=== PATIENT | male | born 1970 | race Caucasian/White ===

== ENCOUNTER → 2020-02-28 | Outpatient (CLI) | payer OTHER | END | disposition home or self-care (01) | LOC: EDSTATUS 15:00 → CVU 15:21 | PROVIDERS: ATTEND Internal Medicine Cardiovascular Disease | DX: R07.89 Other chest pain (principal) | CPT/HCPCS: 93306; 93356 ==

== ENCOUNTER → 2020-04-21 | Outpatient (CLI) | payer OTHER | END | disposition home or self-care (01) | LOC: CFH 07:33 | PROVIDERS: ATTEND Registered Nurse | DX: R94.39 Abnormal result of other cardiovascular function study (principal); R60.9 Edema, unspecified | CPT/HCPCS: 78452; 93017; A9502 ==

== ENCOUNTER → 2020-05-01 | Outpatient (CLI) | payer OTHER | END | disposition home or self-care (01) | LOC: CVU 07:23 | PROVIDERS: ATTEND Registered Nurse | DX: I83.92 Asymptomatic varicose veins of left lower extremity (principal); R60.9 Edema, unspecified; R94.39 Abnormal result of other cardiovascular function study | CPT/HCPCS: 93970 ==

== ENCOUNTER 2020-05-22 09:41 | Day surgery (SDC) | payer OTHER ==
[~2020-05-22] VITALS: Ht 177.8 cm; Wt 85.0 kg
[2020-05-22] MEDS ORDERED: LIDOCAINE 1%-EPI 1:100K, 20ML SQ PRN (10:00)
[2020-05-22] MEDS ORDERED: PLEASE ENTER HEIGHT AND WEIGHT MC SCH (10:00)
[2020-05-22] MEDS ORDERED: LIDOCAINE 2%, 20ML ONE (10:27)
== END 2020-05-22 12:47 | disposition home or self-care (01) ==
LOC: CACL 09:41
PROVIDERS: ATTEND Internal Medicine Cardiovascular Disease
DX: I63.89 Other cerebral infarction (principal); I73.9 Peripheral vascular disease, unspecified; Z88.8 Allergy status to other drugs, medicaments and biological substances; Z72.0 Tobacco use; Z79.82 Long term (current) use of aspirin
CPT/HCPCS: 33285; C1764

== ENCOUNTER → 2020-05-29 | Outpatient (CLI) | payer OTHER | END | disposition home or self-care (01) | LOC: CVU 13:28 | PROVIDERS: ATTEND Physician Assistant Medical | DX: I73.9 Peripheral vascular disease, unspecified (principal) | CPT/HCPCS: 93922 ==